=== PATIENT | female | born 1990 | race African-American/Black ===

== ENCOUNTER 2016-09-23 13:47 | Emergency (ER) | payer OTHER ==
[~2016-09-23] VITALS: Ht 167.6 cm; Wt 80.7 kg
--- NOTE | ~2016-09-23 | EKG ---
PATIENT: HOOD OVALLES UNIT #: [id number] Ventricular Rate: 85 BPM Atrial Rate: 85 BPM P-R Interval: 136 ms QRS Duration: 74 ms Q-T Interval: 354 ms QTC Calculation(Bezet): 421 ms P Creede: 42 degrees Calculated R Creede: 64 degrees Calculated T Creede: 40 degrees Diagnosis Line: Normal sinus rhythm Diagnosis Line: Normal ECG Diagnosis Line: Diagnosis Line: Confirmed by JOYA OROPEZA MD ([id number]) on Diagnosis Line: 09/23/2016 3:35:11 PM INTERPRETING MD: DIO
[2016-09-23 14:46] LABS: BASOPHIL% 0.7 % (0-2.5); EOSINOPHIL# 0.4 X10e3 (0-0.7); EOSINOPHIL% 5.1 % (0.0-7.0); HEMATOCRIT 33.8 % (35.0-45.0); HEMOGLOBIN 11.1 gm/dL (12.0-16.0); LYMPHOCYTE# 4.2 X10e3 (1.0-3.5); LYMPHOCYTE% 60.1 % (17.0-45.0); MEAN CELL VOLUME 81.6 FL (83-96); MEAN CORPUSCULAR HEMOGLOBIN 26.7 PG (28-34); MEAN CORPUSCULAR HGB CONC 32.7 g/dL (30-36); MEAN PLATELET VOLUME 6.9 FL (6.5-11.5); MONOCYTE# 0.5 X10e3 (0-1.0); MONOCYTE% 6.8 % (3.0-12.0); NEUTROPHIL# 1.9 X10e3 (1.5-7.1); NEUTROPHIL% 27.3 % (40-75); PLATELET COUNT 279 X10e3 (140-420); RED BLOOD COUNT 4.15 X10e (3.90-5.30); RED CELL DISTRIBUTION WIDTH 14.6 % (11.0-15.5)
[2016-09-23 14:48] LABS: DIFF IND YES
[2016-09-23 15:04] LABS: BLOOD UREA NITROGEN 15 mg/dL (9-23); BUN/CREATININE RATIO 21.42; CALCIUM SERUM 8.7 mg/dL (8.4-10.2); CARBON DIOXIDE 26 mmol/L (22-31); CHLORIDE 107 mmol/L (100-111); CREATININE SERUM 0.7 mg/dL (0.6-1.4); GLOM FILT RATE Estimated 136.7 mL/min (>60); GLUCOSE FASTING 100 mg/dL (70-110); POTASSIUM 4.1 mmol/L (3.5-5.1); SODIUM 139 mmol/L (135-145)
[2016-09-23 15:09] LABS: POC - CKMB 1.7 ng/mL (0.0-7.9); POC - TROPONIN <0.05 ng/mL (<=0.05)
[2016-09-23 15:12] LABS: ALCOHOL BLOOD <5 mg/dL ([, 0]); HYPOCHROMIA SL; MICROCYTOSIS MOD; PLATELET ESTIMATE NORMAL (NORMAL)
[2016-09-23 16:20] LABS: URINE SOURCE CLEAN CATCH
[2016-09-23 16:27] LABS: URINE APPEARANCE CLOUDY; URINE BILIRUBIN NEG (NEG); URINE BLOOD NEG (NEG); URINE COLOR YELLOW; URINE GLUCOSE NEG (NEG); URINE KETONE NEG (NEG); URINE LEUKOCYTE ESTERASE 2+ (NEG); URINE NITRATE NEG (NEG); URINE PROTEIN NEG (NEG); URINE SPECIFIC GRAVITY 1.017 (1.003-1.035); URINE UROBILINOGEN 0.2 MG/DL (NEG)
[2016-09-23 16:30] LABS: CULTURE INDICATED? YES; URBCS1 AUWI 0-2 /[HPF] (0-2); URINE BACTERIA AUWI 2+ (NEGATIVE); URINE SQUAMOUS EPITHELIAL CELL MOD /[HPF]; UWBCS1 AUWI 25-50 (0-5)
[2016-09-23 16:43] LABS: AMPHETAMINE NEG (NEG); BARBITURATES NEG (NEG); BENZODIAZEPINES NEG (NEG); COCAINE NEG (NEG); MARIJUANA POS (NEG); OPIATES NEG (NEG); TRICYCLIC ANTIDEPRESSANTS NEG (NEG); U METHADONE NEG (NEG)
== END 2016-09-23 17:39 | disposition home or self-care (01) ==
LOC: CED 13:47
PROVIDERS: Emergency Medicine
DX: R25.1 Tremor, unspecified (principal); G40.909 Epilepsy, unspecified, not intractable, without status epilepticus
CPT/HCPCS: 36415; 80048; 80307; 81003; 82553; 82947; 84146; 84484; 84703; 85025; 87086; 93005; 96361; 96374; 99284; G0480; J1885